=== PATIENT | female | born 1990 | race Caucasian/White ===

== ENCOUNTER 2016-11-16 03:31 | Emergency (ER) | payer MEDICAID ==
[~2016-11-16] VITALS: Ht 162.6 cm; Wt 63.5 kg
[2016-11-16 03:55] VITALS: BP_SYST 117
[2016-11-16] MEDS ORDERED: AZITHROMYCIN 250 MG TABLET PO ONE (04:30)
[2016-11-16] MEDS ORDERED: cefTRIAXone 250 MG VIAL IM ONE (04:30)
[2016-11-16] MEDS ORDERED: LIDOCAINE 1% 10 MG/ML, 20 ML MDV IJ ONE (04:45)
[2016-11-16 05:40] VITALS: BP_SYST 119
== END 2016-11-16 05:40 | disposition home or self-care (01) ==
LOC: SED 03:31
DX: L03.115 Cellulitis of right lower limb (principal); L02.415 Cutaneous abscess of right lower limb; N34.2 Other urethritis; J45.909 Unspecified asthma, uncomplicated; Z86.19 Personal history of other infectious and parasitic diseases; Z88.6 Allergy status to analgesic agent; Z88.8 Allergy status to other drugs, medicaments and biological substances
CPT/HCPCS: 96372; 99283; J0696; J2001; Q0144

== ENCOUNTER 2017-01-03 22:51 | Emergency (ER) | payer MEDICAID ==
[~2017-01-03] VITALS: Ht 162.6 cm; Wt 59.0 kg
[2017-01-03 22:51] VITALS: BP_SYST 160
[2017-01-03 23:53] LABS: BILIRUBIN,URINE NEGATIVE (NEGATIVE); CLARITY/URINE CLOUDY (CLEAR); COLOR,URINE YELLOW (YELLOW); GLUCOSE,URINE NEGATIVE (NEGATIVE); KETONES,URINE NEGATIVE (NEGATIVE); LEUKOCYTE ESTERASE ,URINE NEGATIVE (NEGATIVE); NITRITE, URINE NEGATIVE (NEGATIVE); PROTEIN URINE TRACE (NEGATIVE); UROBILINOGEN,URINE 0.2 (0.2-1.0)
[2017-01-03 23:56] LABS: BLOOD, URINE TRACE (NEGATIVE)
[2017-01-04 00:04] LABS: BACTERIA,URINE MODERATE /HPF (None Seen)
[2017-01-04 00:05] LABS: CALCIUM OXALATE CRYSTALS,UR 0-10 /HPF (None Seen); MUCUS,URINE None Seen /LPF (None Seen); URINE AMORPHOUS URATE 2+ /HPF (None Seen)
[2017-01-04] MEDS ORDERED: AZITHROMYCIN 250 MG TABLET PO ONE (01:15)
[2017-01-04] MEDS ORDERED: cefTRIAXone 250 MG in LIDOCAINE 1%, 20 ML MDV 0.9 ML IM ONE (01:15)
[2017-01-04 01:43] VITALS: BP_SYST 147
[2017-01-05 22:10] LABS: CHLAMYDIA TRACHOMATIS NAA Negative (Negative)
[2017-01-06 15:22] LABS: NEISSERIA GONORRHOEAE NAA Positive (Negative)
== END 2017-01-04 01:43 | disposition home or self-care (01) ==
LOC: SED 22:51
DX: A64 Unspecified sexually transmitted disease (principal); N76.0 Acute vaginitis; N39.0 Urinary tract infection, site not specified; J45.909 Unspecified asthma, uncomplicated; Z86.19 Personal history of other infectious and parasitic diseases; Z88.6 Allergy status to analgesic agent; Z88.8 Allergy status to other drugs, medicaments and biological substances
CPT/HCPCS: 81000; 81025; 87086; 87491; 87591; 96372; 99284; J0696; J2001; Q0144

== ENCOUNTER 2017-02-20 02:33 | Emergency (ER) | payer MEDICAID ==
[~2017-02-20] VITALS: Ht 162.6 cm; Wt 68.0 kg
[2017-02-20 02:35] VITALS: BP_SYST 111
[2017-02-20 03:48] LABS: BILIRUBIN,URINE NEGATIVE (NEGATIVE); BLOOD, URINE 2+ (NEGATIVE); CLARITY/URINE CLEAR (CLEAR); COLOR,URINE YELLOW (YELLOW); GLUCOSE,URINE NEGATIVE (NEGATIVE); KETONES,URINE NEGATIVE (NEGATIVE); LEUKOCYTE ESTERASE ,URINE 1+ (NEGATIVE); NITRITE, URINE NEGATIVE (NEGATIVE); PROTEIN URINE 1+ (NEGATIVE); UROBILINOGEN,URINE 0.2 (0.2-1.0)
[2017-02-20 04:19] LABS: WBC,URINE 20-50 /HPF (0-3)
[2017-02-20 04:21] LABS: MUCUS,URINE 3+ /LPF (None Seen)
[2017-02-20 04:22] LABS: BACTERIA,URINE MODERATE /HPF (None Seen)
[2017-02-20 04:26] VITALS: BP_SYST 117
== END 2017-02-20 04:26 | disposition home or self-care (01) ==
LOC: SED 02:33
DX: N39.0 Urinary tract infection, site not specified (principal); L98.8 Other specified disorders of the skin and subcutaneous tissue
CPT/HCPCS: 81000-TC; 81025; 87086; 99284

== ENCOUNTER 2017-10-29 14:19 | Emergency (ER) | payer MEDICAID ==
[~2017-10-29] VITALS: Ht 162.6 cm; Wt 59.0 kg
[2017-10-29 14:25] VITALS: BP_SYST 111
[2017-10-29] MEDS ORDERED: NACL 0.9% 1,000 ML IV ONE (14:45)
[2017-10-29] MEDS ORDERED: ONDANSETRON HCL 4 MG/2 ML VIAL IVP ONE (14:45)
[2017-10-29] MEDS ORDERED: MORPHINE 4 MG/ML INJ. SYRINGE IVP ONE ×2 (14:45→16:00)
[2017-10-29 14:53] LABS: BILIRUBIN,URINE NEGATIVE (NEGATIVE); CLARITY/URINE HAZY (CLEAR); COLOR,URINE YELLOW (YELLOW); GLUCOSE,URINE NEGATIVE (NEGATIVE); KETONES,URINE NEGATIVE (NEGATIVE); LEUKOCYTE ESTERASE ,URINE 1+ (NEGATIVE); NITRITE, URINE NEGATIVE (NEGATIVE); PROTEIN URINE TRACE (NEGATIVE)
[2017-10-29 14:54] LABS: BLOOD, URINE TRACE (NEGATIVE)
[2017-10-29 15:01] LABS: BACTERIA,URINE FEW /HPF (None Seen); MUCUS,URINE 1+ /LPF (None Seen); RBC,URINE 0-3 /HPF (0-3)
[2017-10-29 15:05] LABS: EOSINOPHILS % (AUTO) 0.3 % (0.0-4.0); LYMPHOCYTES # (AUTO) 1.7 K/uL (1.0-5.5); LYMPHOCYTES % (AUTO) 15.4 % (20.5-51.5); MONOCYTES # (AUTO) 0.9 K/uL (0.0-1.0); NEUTROPHILS # (AUTO) 8.3 K/uL (1.8-7.7); WHITE BLOOD COUNT (AUTO) 10.9 K/uL (4.8-10.8)
[2017-10-29 15:08] LABS: BASOPHILS % (AUTO) 0.2 % (0.0-2.0); HEMATOCRIT 35.3 % (36-48); HEMOGLOBIN 11.1 g/dL (12.0-16.0); MEAN CORPUSCULAR HEMOGLOBIN 22 pg (27-31); MEAN CORPUSCULAR HGB CONC 32 % (32-36); MEAN CORPUSCULAR VOLUME 70 fL (79.0-98.0); MONOCYTES % (AUTO) 8.3 % (1.7-9.3); NEUTROPHILS % (AUTO) 75.8 % (40.0-70.0); PLATELET COUNT (AUTO) 476 K/uL (130-430); RED BLOOD CELL COUNT(AUTO) 5.05 MIL/uL (4.2-6.2)
[2017-10-29 15:32] LABS: CALCIUM 9.2 mg/dL (8.4-11.0); CREATININE 0.53 mg/dL (0.55-1.30); POTASSIUM 4.2 mmol/L (3.5-5.1)
[2017-10-29 15:37] LABS: ALBUMIN 3.3 g/dL (3.4-4.8); TOTAL BILIRUBIN 0.6 mg/dL (0.0-1.0)
[2017-10-29 17:25] VITALS: BP_SYST 94
== END 2017-10-29 17:45 | disposition home or self-care (01) ==
LOC: SED 14:19
DX: N11.1 Chronic obstructive pyelonephritis (principal); R03.0 Elevated blood-pressure reading, without diagnosis of hypertension; F19.10 Other psychoactive substance abuse, uncomplicated; J45.909 Unspecified asthma, uncomplicated; F17.210 Nicotine dependence, cigarettes, uncomplicated; Z71.6 Tobacco abuse counseling; Z86.19 Personal history of other infectious and parasitic diseases; Z88.8 Allergy status to other drugs, medicaments and biological substances
CPT/HCPCS: 36415; 71045; 74176; 80053; 81000; 81025; 83605; 83690; 85025; 87040; 87086; 96365; 96375; 99285; J1956; J2270; J2405; J7030

== ENCOUNTER 2019-12-11 17:44 | Emergency (ER) | payer MEDICAID ==
[~2019-12-11] VITALS: Ht 162.6 cm; Wt 63.5 kg
[2019-12-11 17:49] VITALS: BP_SYST 117
[2019-12-11 18:33] LABS: BILIRUBIN,URINE NEGATIVE (NEGATIVE); BLOOD, URINE NEGATIVE (NEGATIVE); COLOR,URINE YELLOW (YELLOW); GLUCOSE,URINE NEGATIVE (NEGATIVE); KETONES,URINE NEGATIVE (NEGATIVE); LEUKOCYTE ESTERASE ,URINE TRACE (NEGATIVE); NITRITE, URINE NEGATIVE (NEGATIVE); PH,URINE 5.5 (5.0-8.0); PROTEIN URINE NEGATIVE (NEGATIVE); UROBILINOGEN,URINE 0.2 (0.2-1.0)
[2019-12-11 18:47] LABS: CLARITY/URINE HAZY (CLEAR)
[2019-12-11 18:53] LABS: RBC,URINE NONE SEEN /HPF (0-3)
[2019-12-11 18:54] LABS: BACTERIA,URINE FEW /HPF (None Seen); MUCUS,URINE 1+ /LPF (None Seen)
[2019-12-11 19:09] VITALS: BP_SYST 117
== END 2019-12-11 19:10 | disposition home or self-care (01) ==
LOC: SED 17:44
DX: K08.89 Other specified disorders of teeth and supporting structures (principal); J45.909 Unspecified asthma, uncomplicated; Z88.6 Allergy status to analgesic agent; Z86.19 Personal history of other infectious and parasitic diseases
CPT/HCPCS: 81000-TC; 81025; 82962; 87086; 99283

== ENCOUNTER 2023-03-28 10:35 | Emergency (ER) | payer MEDICAID ==
[~2023-03-28] VITALS: Ht 162.6 cm; Wt 95.3 kg
[2023-03-28 10:35] VITALS: BP_SYST 129; PULSE 97; RESP 18; TEMP 97.5; O2SAT 97
[2023-03-28 11:33] LABS: BILIRUBIN,URINE NEGATIVE (NEGATIVE); BLOOD, URINE NEGATIVE (NEGATIVE); CLARITY/URINE CLEAR (CLEAR); COLOR,URINE YELLOW (YELLOW); GLUCOSE,URINE NEGATIVE (NEGATIVE); KETONES,URINE NEGATIVE (NEGATIVE); LEUKOCYTE ESTERASE ,URINE NEGATIVE (NEGATIVE); NITRITE, URINE NEGATIVE (NEGATIVE); PROTEIN URINE NEGATIVE (NEGATIVE); UROBILINOGEN,URINE 0.2 (0.2-1.0)
[2023-03-28 12:23] VITALS: BP_SYST 128; PULSE 105; RESP 18; TEMP 97.7; O2SAT 96
== END 2023-03-28 12:19 | disposition left against medical advice (07) ==
LOC: SED 10:35
DX: O23.42 Unspecified infection of urinary tract in pregnancy, second trimester (principal); N39.0 Urinary tract infection, site not specified; Z3A.17 17 weeks gestation of pregnancy; Z79.899 Other long term (current) drug therapy
CPT/HCPCS: 81003; 81025; 99283

== ENCOUNTER 2023-07-23 18:30 | Emergency (ER) | payer MEDICAID ==
[~2023-07-23] VITALS: Ht 162.6 cm; Wt 98.4 kg
[2023-07-23 19:29] VITALS: BP_SYST 130; PULSE 96; RESP 18; TEMP 97; O2SAT 98
[2023-07-23] MEDS ORDERED: NACL 0.9% 1,000 ML IV ONE (22:30)
[2023-07-23 23:15] LABS: POTASSIUM 4.1 mmol/L (3.5-5.1)
[2023-07-23 23:16] LABS: CALCIUM 9.4 mg/dL (8.4-11.0); CREATININE 0.7 mg/dL (0.55-1.30)
[2023-07-23 23:20] LABS: ALBUMIN 2.7 g/dL (3.4-4.8); TOTAL BILIRUBIN 0.2 mg/dL (0.0-1.0); TOTAL PROTEIN, SERUM 7.1 g/dL (6.4-8.3)
[2023-07-23] MEDS ORDERED: AMPICILLIN SODIUM/SULBACTAM NA 3 GM in NS 100 ML IV ONE (23:30)
[2023-07-23] MEDS ORDERED: AMPICILLIN SODIUM/SULBACTAM NA 3 GM VIAL ONE (23:49)
[2023-07-24] MEDS ORDERED: ceFAZolin SODIUM 2 GM VIAL IM ONE
[2023-07-24] MEDS ORDERED: ceFAZolin SODIUM 1 GM VIAL ONE (00:05)
[2023-07-24] MEDS ORDERED: LIDOCAINE 1%, 20 ML MDV 20 ML ONE (00:07)
[2023-07-24] MEDS ORDERED: LIDOCAINE 1% 10 MG/ML, 20 ML MDV INJ ONE (00:15)
[2023-07-24] MEDS ORDERED: CEPH-548 PO (01:08)
[2023-07-24 01:10] VITALS: BP_SYST 125; PULSE 95; RESP 16; TEMP 98; O2SAT 98
== END 2023-07-24 01:10 | disposition home or self-care (01) ==
LOC: SED 18:30
DX: L03.115 Cellulitis of right lower limb (principal); J45.909 Unspecified asthma, uncomplicated; Z88.8 Allergy status to other drugs, medicaments and biological substances
CPT/HCPCS: 99285; 93971; 80053; 36415; 96372; J0690; J2001; J0295